=== PATIENT | female | born 1985 | race Caucasian/White ===

== ENCOUNTER 2021-03-01 22:54 | Emergency (ER) | payer OTHER ==
[~2021-03-01 22:54] MED LIST: CEFUROXIME500 MG PO; MEDROL4 MG PO; MUCINEX600 MG PO; OMNICEF 300 MG300 MG PO; PREDNISONE20 MG PO; PROVENTIL HFA6.7 GM INH; TESSALON PERLE100 MG PO; VENTOLIN HFA 66.7 GM INH; ZOFRAN4 MG PO
== END 2021-03-01 23:15 | disposition home or self-care (01) ==
LOC: ER1 22:54
DX: S61.512A Laceration without foreign body of left wrist, initial encounter (principal); F17.210 Nicotine dependence, cigarettes, uncomplicated; X58.XXXD Exposure to other specified factors, subsequent encounter
CPT/HCPCS: 99282

== ENCOUNTER 2021-03-05 12:09 | Emergency (ER) | payer OTHER ==
[2021-03-05] MEDS ORDERED: BACTRIM DS TAB1 EACH PO (12:40)
[2021-03-05] MEDS ORDERED: BACTROBAN OINT22 GM EXT (12:40)
== END 2021-03-05 13:04 | disposition home or self-care (01) ==
LOC: ER1 12:09
DX: L03.114 Cellulitis of left upper limb (principal); S61.512D Laceration without foreign body of left wrist, subsequent encounter; X58.XXXD Exposure to other specified factors, subsequent encounter
CPT/HCPCS: 99283